=== PATIENT | female | born 1960 | race Caucasian/White ===

== ENCOUNTER 2018-07-20 08:39 | Emergency (ER) | payer BC ==
[2018-07-20 09:00] VITALS: BP 192/90
--- NOTE | 2018-07-20 09:28 | UC ---
Throat Pain/Nasal Gianni HPI - HPI Summary HPI Summary: Pt c/o ST that "comes and goes " X 2 months, right ear pain X 3 days, body aches , cough X 3 days. - History of Current Complaint Chief Complaint: UCGeneralIllness Stated Complaint: SORE THROAT, VOICE LOSS, SINUSES, RT EAR Time Seen by Provider: 07/20/18 09:00 Hx Obtained From: Patient ?: No Onset/Duration: Gradual Onset, Lasting Weeks, Still Present Severity: Moderate Pain Intensity: 6 Cough: None Associated Signs & Symptoms: Positive: Dysphagia, Sinus Discomfort Related History: Smoking - Epiglottits Risk Factors Epiglottis Risk Factors: Negative - Allergies/Home Medications Allergies/Adverse Reactions: Allergies Allergy/AdvReac Type Severity Reaction Status Date / Time amoxicillin [From Augmentin] Allergy Diarrhea Verified 07/20/18 08:58 clavulanic acid Allergy Diarrhea Verified 07/20/18 08:58 [From Augmentin] Home Medications: Home Medications Atorvastatin* [Lipitor*] 20 mg PO 1700 07/20/18 [History Confirmed 07/20/18] PMH/Surg Hx/FS Hx/Imm Hx Previously Healthy: Yes Endocrine History: Diabetes, Dyslipidemia Cardiovascular History: Cardiac Disease, Hypertension - Surgical History Surgical History: Yes Surgery Procedure, Year, and Place: removal of cyst in groin - Family History Known Family History: Positive: Cardiac Disease - Social History Occupation: Employed Full-time Lives: With Family Alcohol Use: None Substance Use Type: None Smoking Status (MU): Heavy Every Day Tobacco Smoker Type: Cigarettes Amount Used/How Often: 1 PPD Length of Time of Smoking/Using Tobacco: 35 Years Have You Smoked in the Last Year: Yes Household Exposure Type: Cigarettes - Immunization History Most Recent Influenza Vaccination: 05/11/14 Vaccination Up to Date: No Review of Systems All Other Systems Reviewed And Are Negative: Yes Constitutional: Positive: Chills Skin: Positive: Negative Eyes: Positive: Negative ENT: Positive: Sore Throat, Ear Ache, Sinus Congestion Respiratory: Positive: Negative Cardiovascular: Positive: Negative Gastrointestinal: Positive: Negative Genitourinary: Positive: Negative Motor: Positive: Negative Neurovascular: Positive: Negative Musculoskeletal: Positive: Myalgia Neurological: Positive: Negative Psychological: Positive: Negative Is Patient Immunocompromised?: No Physical Exam Triage Information Reviewed: Yes Appearance: Ill-Appearing Vital Signs: Initial Vital Signs Temp 97.6 F 07/20/18 08:52 Pulse 93 07/20/18 08:52 Resp 17 07/20/18 08:52 BP 192/90 07/20/18 08:52 Pulse Ox 99 07/20/18 08:52 Vital Signs Reviewed: Yes Eye Exam: Normal ENT: Positive: Nasal congestion Dental Exam: Other - pt does not have any teeth. Neck exam: Normal Neck: Positive: Supple, Nontender, No Lymphadenopathy Respiratory Exam: Normal Cardiovascular Exam: Normal Musculoskeletal Exam: Normal Neurological Exam: Normal Psychological Exam: Normal Skin Exam: Normal Throat Pain/Nasal Course/Dx - Course Assessment/Plan: I disucssed with the pt the need to follow up with her PCP. Pt reports that she has not had a colonoscopy or endoscopy. - Differential Dx/Diagnosis Differential Diagnosis/HQI/PQRI: Otitis Media, Pharyngitis, Sinusitis, Tonsillitis, URI Provider Diagnosis: Viral syndrome, Sore throat Discharge - Sign-Out/Discharge Documenting (check all that apply): Patient Departure All imaging exams completed and their final reports reviewed: No Studies - Discharge Plan Condition: Stable Disposition: HOME Patient Education Materials: Viral Syndrome (ED) Referrals: Eligio Jay MD [Primary Care Provider] - As Soon As Possible Additional Instructions: PLEASE FOLLOW UP WITH YOUR PCP IMMEDIATELY FOR FURTHER EVALUATION AND TESTING REGARDING YOUR COMPLAINT OF SORE THROAT. - Billing Disposition and Condition Condition: STABLE Disposition: Home - Attestation Statements Provider Attestation: Per institutional requirements, I have reviewed the chart, however, I was not consulted specifically or made aware of this patient by the midlevel provider. I did not personally evaluate, interact with , or disposition this patient.
== END 2018-07-20 09:47 | disposition home or self-care (01) ==
LOC: UCCORT 08:39
DX: J02.9 Acute pharyngitis, unspecified (principal); B34.9 Viral infection, unspecified; E11.9 Type 2 diabetes mellitus without complications; I10 Essential (primary) hypertension; F17.210 Nicotine dependence, cigarettes, uncomplicated; E78.5 Hyperlipidemia, unspecified; Z88.0 Allergy status to penicillin; Z79.899 Other long term (current) drug therapy
CPT/HCPCS: 87651; 99211; G0463

== ENCOUNTER 2018-09-06 08:50 | Emergency (ER) | payer BC ==
[2018-09-06 09:00] VITALS: BP 160/81
--- OUTSIDE RECORDS SUMMARY | 2018-09-06 09:14 | XMS REPORT | Continuity of Care Document ---
:1960 External Reference #:[id number] Author Name Adolfo Ceron MD Address [address] [place] [address] Care Team Providers Name Role Phone Eligio Jay MD Care Team Information Wax Ball Molder Unavailable Eligio Jay MD Primary Care Physician Unavailable Payers Date Identification Numbers Payment Provider Subscriber Policy Number: [id number] Aimee Wong PayID: [id number] [address] [address] [place] [address] Advance Directives Description No Information Available Problems Date Description Provider Status Onset: 07/08/2017 Mixed hyperlipidemia Slick Henderson M.D., Active FACC Onset: 07/08/2017 Obesity Slick Henderson M.D., Active FACC Onset: 2010 Eruption Slick Henderson M.D., Active FACC Onset: 2010 Tobacco user Slick Henderson M.D., Active FACC Onset: 2010 Type II diabetes mellitus Slick Henderson M.D., Active uncontrolled FACC Onset: 2010 Benign essential hypertension Slick Henderson M.D., Active FACC Onset: 2010 Paroxysmal ventricular Slick Henderson M.D., Active tachycardia FACC Family History Date Family Member(s) Observation Comments Father due to Heart Attack () Father Myocardial Infarction 63 Mother due to Cancer () Mother Pancreatic Cancer 80 Children 1 Siblings 4 Social History Type Date Description Comments Sex Unknown Marital Status Lives With Gag[facility]ep Home Environment Lives With Spouse Diet Patient is on a VALENTIN diabetic diet Occupation Currently Working part-time [employer] Work Status Currently Working ADL's/IADL's Independent with all ADL's Tobacco Use Start: Unknown Current Cigarette Smoker 1 Pack Daily Cigarette Use Pack Years - 30 ETOH Use Denies alcohol use ETOH Use Currently consumes alcohol socially Tobacco Use Start: Unknown Yes Recreational Drug Use Denies Drug Use Tobacco Use Start: Unknown Patient is a current 1 ppd x 38 years smoker, smokes every day Smoking Status Reviewed: 08/20/18 Patient is a current 1 ppd x 38 years smoker, smokes every day Exercise Type/Frequency Exercises daily with work Exercise Type/Frequency Does housework daily Allergies, Adverse Reactions, Alerts Date Description Reaction Status Severity Comments 07/08/2017 Jardiance Active yeast 08/21/2010 NKDA Inactive 07/08/2017 NKDA Inactive Medications Medication Date Status Form Strength Qnty SIG Indications Ordering Provider Novolog Flexpen 03/12/20 Active Solution 100Unit/M 15ml 10u E11.65 Aletha, 17 Pen-Injec L before Eden Melendrez t meals subcutan eous three times a day as needed Atorvastatin 11/21/19 Active Tablets 20mg 90tab Take One E78.5 Sandra Henderson 17 s Tablet Slick Slaughter, By Mouth Tay.DLinh, FAC Every Day Amlodipine Active Capsules 5-10mg 30cap 1 po qd Unknown Besylate/Benaze 00 s pril Hydrochloride Tresiba Active Solution 200Unit/M 27ml inject Aletha Flextouch 00 Pen-Injec L 50 units Eden Melendrez t under the skin at bedtime Metformin HCL Active Tablets 1000mg 180ta 1 by Aletha 00 bs mouth Eden Melendrez twice a day Amiodarone HCL Active Tablets 200mg 90tab 1 by Beatriz, 00 s mouth Slick Slaughter, every M.DLinh, FAC day Jardiance 04/30/20 Hx Tablets 25mg 90tab 1 by E11.65 Aletha 17 - s mouth Parvin, M.D. Unknown every day Jardiance 03/12/20 Hx Tablets 10mg 90tab 1 by E11.65 Aletha 17 - s mouth Eden Melendrez 04/30/20 every 17 day Tylenol With 01/19/20 Hx Tablets 300-30mg 20tab 1 by Yo Jaquez #3 17 - s mouth Christopher 03/12/20 q6hr as Eden Malik 17 needed severe pain, us if ibuprofe n not effectiv e Cephalexin 01/19/20 Hx Capsules 250mg Gisele 17 - Vanceopher 03/12/20 Eden Malik 17 Ibuprofen 01/19/20 Hx Tablets 600mg Gisele 17 - Quintoner 03/12/20 Eden Malik 17 Silver 01/19/20 Hx Cream 1% 400gm use on [place] Sulfadiazine 17 - gauze / Vanceopher 03/12/20 dressing Eden Malik 17 chages as directed once daily an dominguez needed Fluconazole 01/19/20 Hx Tablets 150mg 2tabs take 1 Gisele 17 - tablet Quintoner 03/12/20 by mouth Eden Malik 17 one time. repeat in 5 days if symptoms persist Keflex 08/09/19 Hx Capsules 500mg 14cap Take Gisele 16 - s twice a Cr Unknown day for HEden Melton 7 days Sulfamethoxazol 08/02/19 Hx Tablets 800-160mg 20tab 1 by wilfrid Jaquez/Trimethoprim 16 - s mouth Cr DS Unknown twice a HEden Melton day Crestor 10/19/19 Hx Tablets 10mg 30tab Take One 272.0 Jonel Ventura 11 - s Tablet MD Sterling, PhD Unknown By Mouth Every Day Janumet Hx Tablets 50-500mg 1 po bid Unknown 00 - Unknown Lantus Hx Solution 100Unit/M 15 units Unknown 00 - L qhs Unknown Glyburide Hx Tablets 2.5mg 1 po qam Unknown 00 - Unknown Enalapril Hx Tablets 20mg 1 po qd Unknown Maleate 00 - Unknown Magnesium Oxide Hx Tablets 400mg po qid Unknown 400 00 - Unknown Hydrochlorothia Hx Tablets 12.5mg 30tab 1 po qd Unknown zide - s Unknown Meclizine HCL Hx Tablets 25mg 90tab 1 po tid Unknown 00 - s prn Unknown Meloxicam Hx Tablets 15mg 1 po qd Unknown 00 - Unknown Citalopram Hx Tablets 20mg 90tab 1 po qd Unknown Hydrobromide - s 12/18/19 18 Novolog Mix Hx Supn (70-30)10 20 units Unknown 70/30 Prefilled 00 - 0Unit/ML subq bid Flexpen Unknown Amiodarone HCL Hx Tablets 200mg 30tab Take One I47.2 Beatriz - s Tablet Slick Slaughter, 11/21/19 By Mouth M.DLinh, FAC 17 Every Day Aspirin Adult Hx Tablets 81mg 1 by Unknown Low Dose 00 - DR mouth 01/02/20 every 17 day Immunizations Description No Information Available Vital Signs Date Vital Result Comment 08/20/2018 3:42pm BP Systolic Sitting Right Arm 165 mmHg BP Diastolic Sitting Right Arm 80 mmHg Heart Rate 81 /min Respiratory Rate 16 /min Height 64.9 inches 5'4.90" Weight 207.00 lb BMI (Body Mass Index) 34.5 kg/m2 BSA (Body Surface Area) 2.00 m2 [place] body weight in kilograms 56 kg O2 % BldC Oximetry 99 % ra 08/12/2018 8:38am BP Systolic 154 mmHg BP Diastolic 86 mmHg Body Temperature 97.8 F Heart Rate 80 /min Height 64.9 inches 5'4.90" Weight 203.00 lb BMI (Body Mass Index) 33.9 kg/m2 BSA (Body Surface Area) 1.99 m2 [place] body weight in kilograms 56 kg O2 % BldC Oximetry 98 % 05/23/2018 3:51pm BP Systolic 170 mmHg BP Diastolic 79 mmHg Body Temperature 98.3 F Heart Rate 75 /min Height 66 inches 5'6" Weight 211.00 lb BMI (Body Mass Index) 34.1 kg/m2 BSA (Body Surface Area) 2.05 m2 [place] body weight in kilograms 59 kg O2 % BldC Oximetry 98 % 05/23/2018 8:23am BP Systolic 182 mmHg BP Diastolic 82 mmHg Heart Rate 69 /min Respiratory Rate 16 /min Height 66 inches 5'6" Weight 209.00 lb BMI (Body Mass Index) 33.7 kg/m2 BSA (Body Surface Area) 2.04 m2 [place] body weight in kilograms 59 kg O2 % BldC Oximetry 98 % 03/21/2018 3:53pm BP Systolic 136 mmHg BP Diastolic 80 mmHg Heart Rate 82 /min Height 66 inches 5'6" Weight 204.00 lb BMI (Body Mass Index) 32.9 kg/m2 BSA (Body Surface Area) 2.02 m2 [place] body weight in kilograms 59 kg O2 % BldC Oximetry 98 % 03/19/2018 2:00pm BP Systolic Sitting Left Arm 136 mmHg BP Diastolic Sitting Left Arm 72 mmHg Heart Rate 84 /min Respiratory Rate 16 /min Height 64 inches 5'4" Weight 208.00 lb BMI (Body Mass Index) 35.7 kg/m2 BSA (Body Surface Area) 1.99 m2 [place] body weight in kilograms 54 kg O2 % BldC Oximetry 98 % Room air 02/13/2018 10:49am BP Systolic Sitting Left Arm 130 mmHg BP Diastolic Sitting Left Arm 88 mmHg Heart Rate 83 /min Respiratory Rate 16 /min Height 64 inches 5'4" Weight 197.00 lb BMI (Body Mass Index) 33.8 kg/m2 BSA (Body Surface Area) 1.94 m2 [place] body weight in kilograms 54 kg O2 % BldC Oximetry 98 % 07/08/2017 3:03pm BP Systolic Sitting Left Arm 130 mmHg BP Diastolic Sitting Left Arm 62 mmHg Heart Rate 84 /min Respiratory Rate 16 /min Height 64 inches 5'4" Weight 200.00 lb BMI (Body Mass Index) 34.3 kg/m2 BSA (Body Surface Area) 1.96 m2 [place] body weight in kilograms 54 kg 04/30/2017 3:45pm BP Systolic 128 mmHg BP Diastolic 70 mmHg Height 64 inches 5'4" Weight 216.12 lb BMI (Body Mass Index) 37.1 kg/m2 BSA (Body Surface Area) 2.02 m2 [place] body weight in kilograms 54 kg 03/12/2017 1:29pm BP Systolic 128 mmHg BP Diastolic 70 mmHg Height 64 inches 5'4" Weight 216.12 lb BMI (Body Mass Index) 37.1 kg/m2 BSA (Body Surface Area) 2.02 m2 [place] body weight in kilograms 54 kg 01/11/2017 8:23am BP Systolic Sitting Left Arm 132 mmHg BP Diastolic Sitting Left Arm 84 mmHg Heart Rate 72 /min Respiratory Rate 16 /min Height 64 inches 5'4" Weight 213.00 lb BMI (Body Mass Index) 36.6 kg/m2 BSA (Body Surface Area) 2.01 m2 [place] body weight in kilograms 54 kg 12/27/2016 2:47pm BP Systolic 120 mmHg BP Diastolic 80 mmHg Height 64 inches 5'4" Weight 218.00 lb BMI (Body Mass Index) 37.4 kg/m2 BSA (Body Surface Area) 2.03 m2 [place] body weight in kilograms 54 kg 11/20/2016 10:03am BP Systolic Sitting Left Arm 138 mmHg BP Diastolic Sitting Left Arm 82 mmHg Heart Rate 80 /min Respiratory Rate 16 /min Height 66 inches 5'6" Weight 220.00 lb BMI (Body Mass Index) 35.5 kg/m2 BSA (Body Surface Area) 2.08 m2 [place] body weight in kilograms 59 kg 08/02/2015 10:33am BP Systolic 144 mmHg BP Diastolic 80 mmHg Height 66 inches 5'6" Weight 207.00 lb BMI (Body Mass Index) 33.4 kg/m2 BSA (Body Surface Area) 2.03 m2 05/04/2011 2:25pm BP Systolic Sitting Right Arm 122 mmHg BP Diastolic Sitting Right Arm 80 mmHg Heart Rate 80 /min Respiratory Rate 16 /min Height 66 inches 5'6" Weight 204.00 lb BMI (Body Mass Index) 32.9 kg/m2 10/18/2010 11:19am BP Systolic Sitting Left Arm 118 mmHg BP Diastolic Sitting Left Arm 68 mmHg Heart Rate 72 /min Respiratory Rate 16 /min Height 66 inches 5'6" Weight 199.00 lb BMI (Body Mass Index) 32.1 kg/m2 2010 11:10am BP Systolic Sitting Right Arm 120 mmHg BP Diastolic Sitting Right Arm 72 mmHg Heart Rate 86 /min Respiratory Rate 16 /min Height 65.5 inches 5'5.50" Weight 203.00 lb BMI (Body Mass Index) 33.3 kg/m2 08/21/2010 3:11pm Heart Rate 77 /min Regular Respiratory Rate 16 /min Height 66 inches 5'6" Weight 204.00 lb BMI (Body Mass Index) 32.9 kg/m2 Results Test Date Facility Test Result H/L Range Note Laboratory test 04/12/2017 [facility] Thyroid Stim 1.94 uIU/mL N 0.30-4.20 1 finding [address] [place] [address] [phone] Free T4 1.14 ng/dL N 0.76-1.46 Laboratory test 04/12/2017 [facility] CK 59 U/L N 26-192 finding [address] [place], [place] [address] [phone] LDL Cholesterol 04/12/2017 [facility] Cholesterol 122 mg/dL <200 2 Profile [address] [place] [address] [phone] Triglycerides 77 mg/dL <150 3 HDL Cholesterol 70 mg/dL >40 4 LDL-Cholesterol 37 mg/dL < 100 5 Glycohemoglobin 04/12/2017 [facility] Glycohemoglobin 9.5 % High 4.2-6.3 6 A1c [address] (A1c) [place] [address] [phone] eAG 226 mg/dL Comprehensive Metabolic 04/12/2017 [facility] Glucose 131 mg/dL High 74-106 Panel [address] [place] [address] [phone] BUN 25 mg/dL High 7-18 Creatinine 1.3 mg/dL N 0.6-1.3 Glom Filtration Rate, Estimate 45 mL/min >60 If 54 mL/min >60 7 BUN/Creat 19.2 ratio Sodium 138 mmol/L N 136-145 Potassium 4.5 mmol/L N 3.5-5.1 Chloride 108 mmol/L High 98-107 Carbon Dioxide 24 mmol/L N 21-32 Anion Gap 6 mEq/L Low 8-16 Calcium 9.2 mg/dL N 8.5-10.1 Total Protein 7.9 g/dL N 6.4-8.2 Albumin 3.6 g/dL N 3.4-5.0 Globulin 4.3 g/dL N 1.9-4.3 Alb/Glob 0.8 ratio Bilirubin,Total 0.3 mg/dL N 0.2-1.0 Sgot/Ast 24 U/L N 15-37 SGPT/Alt 40 U/L N 12-78 Alkaline Phosphatase 127 U/L High 45-117 Laboratory test 04/12/2017 [facility] C-Peptide 1.0 ng/mL Low 1.1-4.4 [address] [place] [address] [phone] CBS W/Automated 04/12/2017 [facility] White Blood 9.9 K/uL N 3.1-10.[address] [place] [address] [phone] Red Blood Count 3.83 M/uL Low 3.90-5.40 Hemoglobin 12.0 gm/dL N 11.6-15.8 Hematocrit 35.8 % Low 36.0-46.1 Mean Cell Volume 93.5 fl N 80.9-99.0 Mean Corpuscular HGB 31.3 pg N 25.9-32.7 Mean Corpuscular HGB Conc 33.5 g/dL N 30.8-34.3 Platelet Count 347 K/uL N 150-400 Red Cell Distri Width SD 46.5 fl N 3-47 Red Cell Distri Width %CV 14.0 % N 11.7-14.4 Mean Platelet Volume 11.2 fL N 8.9-12.4 Neut% 48.2 % N 40.4-72.8 Lymph % 37.6 % N 20.0-42.0 [place] % 8.1 % N 4.3-13.2 Eo% 5.3 % N 0.0-6.6 Bas% 0.8 % N 0.0-1.1 Neut# 4.78 K/uL N 1.8-7.0 Lymph # 3.73 K/uL N 1.0-4.0 [place] # 0.80 K/uL N 0.3-0.9 Eos # 0.53 K/uL High 0.0-0.5 Baso # 0.08 K/uL N 0.0-0.1 Laboratory test 10/25/2016 N2N/CCD Import Pap Smear ok 9 finding Thin Prep Laboratory test 10/25/2016 N2N/CCD Import HPV Laboratory Allia 10 finding <See Note> Divide Urine 10/20/2016 N2N/CCD Import Alb/Creatini 270.9 ug/mg High (0.0- 2 Albumin @ ne Ratio 9.9) Albumin, Urine 9.21 mg/dL Creatinine,Urine 34.00 mg/dL Laboratory test finding 10/08/2016 N2N/CCD Import A/G Ratio 1.6 Ratio 1.0-2.2 11 Jackie Egfr 55 Low >60 Albumin 4.0 g/dL 3.6-4.9 Alkaline Phosphatase 90 U/L 24-140 Alt 42 U/L 3-42 Anion Gap 16 mmol/L 7-16 Ast 30 U/L 8-42 BUN 18 mg/dL 6-26 Calcium 9.3 mg/dL 8.5-10.2 Carbon Dioxide 25 mmol/L 24-34 Chloride# 105 mmol/L 97-110 Creatinine 1.2 mg/dL 0.5-1.4 Globulin 2.5 g/dL 2.0-3.5 Glucose 189 mg/dL High 70-105 12 Hemoglobin A1c 11.1 % High 4.1-5.9 Hepatitis C Virus Antibody Nonreactive Nonreactive Non Jackie Egfr 46 Low >60 Potassium 5.0 mmol/L 3.5-5.2 13 Sodium 141 mmol/L 135-146 TSH 4.85 uIU/mL 0.35-4.94 Total Bilirubin 0.3 mg/dL 0.1-1.3 Total Protein 6.5 g/dL 6.0-8.0 Vit D,25 Hydroxy 20 ng/mL Low 31-100 Vitamin B12 314 pg/mL 180-914 CBC With Auto Diff 10/08/2016 N2N/CCD Import Abs Basophils 0.1 K/uL 0.0- 0.3 Abs Eosinophils 0.4 K/uL 0.0-0.5 Abs Lymphocytes 2.8 K/uL 0.8-5.5 Abs Monocytes 0.7 K/uL 0.1-1.0 Abs Neutrophils 5.7 K/uL 2.1-8.0 Basophil 1.1 % 0.0-4.0 Eosinophil 4.2 % 0.0-5.0 Hematocrit 34.5 % Low 36.0-47.0 Hemoglobin 11.5 gm/dL Low 12.0-16.0 Lymphocyte 28.9 % 16.0-52.0 MCH 31.6 pg 27.0-32.0 MCHC 33.5 g/dL 32.0-36.0 MCV 94.2 fL 80.0-97.0 Monocyte 7.2 % 2.0-10.0 Neutrophil 58.6 % 35.0-75.0 PLT Count 329 K/ul 140-400 RBC 3.66 M/uL Low 4.00-5.40 RDW 13.5 % 11.5-14.5 WBC 9.6 K/uL 4.1-11.0 Lipid 10/08/2016 N2N/CCD Import Chol/ HDL Ratio 2.9 ratio Low 3.7-5.6 14 Cholesterol 187 mg/dL 50-199 HDL 65 mg/dL 35-85 LDL (Calc) 100 mg/dL High 20-99 Triglycerides 107 mg/dL 30-200 VLDL 21 mg/dL 2-29 Laboratory test 09/24/2016 N2N/CCD Import Fit(Fecal Occult Negative Negative 15 finding Blood) Routine Culture W/ 08/08/2015 [facility] Gram Stain See Note 16 Gram Stain [address] [place] [address] [phone] Aerobic Culture See Note 17 Anaerobic Culture 08/08/2015 [facility] Anaerobic Culture See Note 18 W/ GR Stain [address] [facility] W/ GR Stain [place], [place] [id number] [phone] Gram Stain; Anaerobic Specimen See Note 19 Anaerobic Culture See Note 20 Laboratory test finding 07/11/2015 N2N/CCD Import Estimated Average 249 Glucose (eAG) Hemoglobin A1c 10.3 High 4.2-6.3 Laboratory test finding 05/07/2015 N2N/CCD Import Albumin/Globulin Ratio 0.9 Estimated Average Glucose (eAG) 252 Free Thyroxine 1.16 0.76-1.46 Hemoglobin A1c 10.4 High 4.2-6.3 Sodium Level 140 136-145 Laboratory test 04/12/2011 [facility] Bilirubin,Total 0.3 mg/dL 0.2-1.2 finding [address] [place] [address] [phone] Sgot/Ast 18 U/L 16-40 SGPT/Alt 37 U/L 30-65 Alkaline Phosphatase 70 U/L 50-136 Thyroxine (T4) 12.6 g/dL 5.3-14.8 Thyroid Stim Hormone 4.45 uIU/mL 0.49-4.67 Glycohemoglobin 04/12/2011 [facility] Glycohemoglobin 9.4 % High 4.8-6.0 [address] (A1c) [place] [address] [phone] eAG 223 mg/dL Laboratory test 04/12/2011 [facility] Vitamin 42.5 32.0-100.0 [address] D,25-Hydroxy ng/[place] [address] [phone] CBS W/Automated 04/12/2011 [facility] White Blood 10.6 K/uL 3.1-10.[address] [place] [address] [phone] Red Blood Count 3.62 M/uL Low 3.90-5.40 Hemoglobin 11.5 gm/dL Low 11.6-15.8 Hematocrit 34.1 % Low 36.0-46.1 Mean Cell Volume 94.2 fl 80.9-99.0 Mean Corpuscular HGB 31.8 pg 25.9-32.7 Mean Corpuscular HGB Conc 33.7 g/dL 30.8-34.3 Platelet Count 357 K/uL 155-360 Red Cell Distri Width %CV 13.6 % 11.7-14.4 Mean Platelet Volume 11.4 fL 8.9-12.4 Neut% 51.3 % 40.4-72.8 Lymph % 35.4 % 17.0-46.1 [place] % 7.4 % 4.3-13.2 Eo% 5.2 % 0.0-6.6 Bas% 0.7 % 0.0-1.1 Neut# 5.46 K/uL 1.0-7.0 Lymph # 3.76 K/uL High 0.8-3.4 [place] # 0.79 K/uL 0.3-0.9 Eos # 0.55 K/uL High 0.0-0.5 Baso # 0.07 K/uL 0.0-0.1 Red Cell Distri Width SD 45.1 fl 3-47 LDL Cholesterol 04/12/2011 [facility] Cholesterol 133 mg/dL 120-[address] [place] [address] [phone] Triglycerides 80 mg/dL 16-231 HDL Cholesterol 66 mg/dL 29-83 LDL-Cholesterol 51 mg/dL Low 62-185 Laboratory test finding 04/12/2011 [facility] Magnesium 1.8 mg/dL 1.7-2.3 [address] [place] [address] [phone] Basic Metabolic Panel 04/12/2011 [facility] Glucose 94 mg/dL 76-115 [address] [place] [address] [phone] BUN 14 mg/dL 5-23 Creatinine 0.9 mg/dL 0.5-1.4 Glom Filtration Rate, Estimate >60 mL/min >60 If >60 mL/min >60 23 BUN/Creat 15.5 ratio Sodium 138 mmol/L 136-145 Potassium 4.7 mmol/L 3.5-5.1 Chloride 104 mmol/L 98-107 Carbon Dioxide 26 mEq/L 18-29 Anion Gap 13 mEq/L 8-16 Calcium 9.5 mg/dL 8.5-10.1 Liver Function Tests 12/18/2010 [facility] Total Protein 7.8 g/dL 6.3-8.0 [address] [place] [address] [phone] Albumin 3.5 g/dL 3.5-5.0 Bilirubin,Total 0.3 mg/dL 0.2-1.2 Bilirubin,Direct 0.1 mg/dL 0.1-0.4 Bilirubin,Indirect 0.2 mg/dL 0.0-0.9 Sgot/Ast 16 U/L 16-40 SGPT/Alt 49 U/L 30-65 Alkaline Phosphatase 89 U/L 50-136 Globulin 4.3 gm/dL 1.9-4.3 Alb/Glob 0.8 LDL Cholesterol 12/18/2010 [facility] Cholesterol 119 mg/dL Low 120-200 Profile [address] [place] [address] [phone] Triglycerides 54 mg/dL 0-210 HDL Cholesterol 55 mg/dL 32-96 LDL-Cholesterol 53 mg/dL Low 62-185 Laboratory test 10/18/2010 [facility] Thyroid Stim 2.77 uIU/mL 0.49-4.67 24 finding [address] [place] [address] [phone] Magnesium 1.9 mg/dL 1.7-2.3 25 Liver Function Tests 10/18/2010 [facility] Total Protein 7.6 g/dL 6.3-8.0 [address] [place] [address] [phone] Albumin 3.8 g/dL 3.5-5.0 Bilirubin,Total 0.2 mg/dL 0.2-1.2 Bilirubin,Direct 0.1 mg/dL 0.1-0.4 Bilirubin,Indirect 0.1 mg/dL 0.0-0.9 Sgot/Ast 15 U/L Low 16-40 SGPT/Alt 35 U/L 30-65 Alkaline Phosphatase 88 U/L 50-136 Globulin 3.8 gm/dL 1.9-4.3 Alb/Glob 1.0 LDL Cholesterol 10/18/2010 [facility] Cholesterol 153 mg/dL 120-200 Profile [address] [place] [address] [phone] Triglycerides 143 mg/dL 0-210 HDL Cholesterol 50 mg/dL 32-96 LDL-Cholesterol 74 mg/dL 62-185 1 E11.65 E78.2 2 Reference Guidelines*: Desirable: ........... < 200 mg/dL Borderline High: ..... 200-239 mg/dL High: ................ >=240 mg/dL * The National Cholesterol Education Program (NCEP) 3 Reference Guidelines*: Normal: ............. < 150 mg/dL Borderline High: .... 150-199 mg/dL High: ............... 200-499 mg/dL Very High: .......... > 500 mg/dL * Source: National Cholesterol Education Program (NCEP) 4 Reference Guidelines*: Low HDL: ..... < 40 mg/dL Normal: ..... 40-60 mg/dL Desirable: ... > 60 mg/dL *The National Cholesterol Education Program(NCEP) 5 Reference Guidelines*: Optimal:........... <100 mg/dL Near Optimal....... 100-129 mg/dL Borderline High.... 130-159 mg/dL High............... 160-189 mg/dL Very High.......... >=190 mg/dL * Source: National Cholesterol Education Program (NCEP) 6 Elevated levels of HbA1c suggest the need for more aggressive treatment of glycemia. The [place] [employer] recommends that a primary goal of therapy should be a HbA1c of <7% and that physicians should re-evaluate the treatment regimen in patients with HbA1c values consistently >8%. 7 Note: Persistent reduction for 3 months or more in an eGFR <60 mL/min/1.73 m2 defines CKD. Patients with eGFR values >/=60 mL/min/1.73 m2 may also have CKD if evidence of persistent proteinuria is present. The original MDRD equation for estimated GFR is not valid for patients less than 18 years of age. Additional information may be found at www.kdoqi.org. 8 C-Peptide reference interval is for fasting patients. Performed at: RN - [facility] [address] [id number] Tip Printer: Yuliya Felipe MD, Phone: [phone] [employer] [facility] [employer] [place] [address] CYTOLOGY REPORT Source of Specimen(s): Thin Prep Cervical / Endocervical Pap Smear - One Vial Date of Last Menstrual Period: 2009 Other Clinical Conditions: Last Pap Smear: 2012 ok per pt HPV ASSAY REQUESTED Specimen Adequacy SATISFACTORY FOR EVALUATION PRESENCE OF ENDOCERVICAL/TRANSFORMATION ZONE COMPONENT General Categorization NEGATIVE FOR INTRAEPITHELIAL LESION OR MALIGNANCY Interpretation NEGATIVE FOR INTRAEPITHELIAL LESION OR MALIGNANCY Comment HPV testing will be performed and a separate report will be issued. Reported: 10/29/2016 11:45 Electronically Signed Out By Sarah LE(ASCP) endy ICD9 Code: Z01.419 Unless otherwise specified, testing performed by [facility] [employer] [address] [address] [employer] [place] [address] [employer] [place] [address] Amplified Molecular High Risk HPV Test Patient Name:LISA WONG Patient :1960 Ordering Physician:CLARISSA LOVELACE MD Accession Number [id number] Specimen(s) Received A: High Risk HPV Thin Prep Cervical / Endocervical Pap Smear - One Vial Other Case Numbers: [id number] Diagnosis RISK GROUPS RESULTS High Risk NEGATIVE Tested for HPV Types (16, 18, 31, 33, 35, 39, 45, 51, 52, 56, 58, 59, 66, 68) Reported: 10/30/2016 10:28 Electronically Signed Out By Ifrah Potter [place] brennen Irena Delgado 11 Fastin hours 12 Updated reference range on new analyzer 13 Updated reference range on new analyzer 14 Per NCEP ATP III Guidelines: Results lower than 40 mg/dL are suggestive of increased risk for coronary artery disease. Results > or=to 60 mg/dL are considered a negative risk factor. 15 given LC 16 GRAM STAIN ! RARE GRAM POSITIVE COCCI ! RARE WHITE BLOOD CELLS 17 Organism 1 ! NO PATHOGENS ISOLATED 18 CULTURE IN PROGRESS 19 GRAM STAIN ! RARE GRAM POSITIVE COCCI ! RARE WHITE BLOOD CELLS 20 NO ANAEROBES ISOLATED 21 A1c value between 5.7% and 6.4% is considered at increased risk for diabetes. A1c value greater than 6.5 % is considered essentially diagnostic for Type II diabetes. Current guidelines recommend a treatment goal of <7% for diabetic patients. This method will measure glycosylated hemoglobin variants, HbS, HbG, HbH, HbWayne, HbC, HbE, etc. Other hemoglobin- opathies may give incorrect results with this test. 22 Effective May 14, 2011 Vitamin D, 25-Hydroxy reference intervals will be changing to 30-100. Recent studies consider the lower limit of 32.0 ng/mL to be a threshold for optimal health. Luis GO. J Nutr. 2004;135(2):317-22. Performed at: RN - [facility] [address] [id number] Tip Printer: Tristan Waters MD, Phone: [phone] Note: Persistent reduction for 3 months or more in an eGFR <60 mL/min/1.73 m2 defines CKD. Patients with eGFR values >/=60 mL/min/1.73 m2 may also have CKD if evidence of persistent proteinuria is present. The original MDRD equation for estimated GFR is not valid for patients less than 18 years of age. Additional information may be found at www.kdoqi.org. 24 QUERY: @[facility] Pat ID: [id number] QUERY: @[facility] Req #: [id number] QUERY: @EMR Pat ID: [id number] QUERY: @[facility] Req #: [id number] Procedures Date Code Description Status 08/12/2018 08980 Debridement Nails Any Method 6 Or More Completed 05/23/2018 54478 Debridement Nails Any Method 6 Or More Completed 04/11/2018 61672 Bronchospasm Provocation Evaluation Multi Spirometric Completed Determinati 04/11/2018 09760 Spirometry Completed 03/21/2018 79391 Debridement Nails Any Method 6 Or More Completed 02/28/2018 42229 Eye Exam Est Patient Comprehensive Completed 02/13/2018 88203 EKG-Tracing And Report Completed 02/06/2018 89824 EKG Interpretation And Report Only Completed 12/17/2017 45493 Eye Exam Est Patient Comprehensive Completed 04/09/2017 34891 Glucose Monitoring Interpetation And Report Completed 03/18/2017 35640 Glucose Monitoring From Interstital Tissue Fluid Completed Minimum 72 Hours 01/08/2017 60984 Stress Test Interpre And Report Only Completed 01/08/2017 78064 Stress Test Physician Super Only Completed 01/08/2017 84624 Myocardial Imaging Tomographic Multiple Study AT Rest Completed Or Stress 01/08/2017 06923 Exc Other Benign Lesion Trunk,Arms Or Legs 0.5CM Or Completed Less 01/07/2017 88746 Myocardial Imaging Tomographic Multiple Study AT Rest Completed Or Stress 01/07/2017 91603 Stress Test Physician Super Only Completed 01/07/2017 64026 Stress Test Interpre And Report Only Completed 12/12/2016 36019 Echocardiogram Complete Completed 11/20/2016 90740 EKG-Tracing And Report Completed 11/20/2016 70235 EKG-Tracing And Report Completed 10/03/2016 29675 Eye Exam New Patient Comprehensive Completed 08/08/2015 89777 I & D Of Abscess/Simple Or Single Completed 06/24/2012 32103505 Mammogram Completed 2010 42285 Event Monitor Inter/Review Only Completed 08/21/2010 61104 EKG-Tracing And Report Completed 08/17/2010 31477 EKG Interpretation And Report Only Completed 08/16/2010 43336 Echocardiogram Complete Completed 08/16/2010 62106 Stress Test Interpre And Report Only Completed 08/16/2010 22530 Stress Test Physician Super Only Completed 08/16/2010 49913 EKG Interpretation And Report Only Completed 08/16/2010 38380 Myocardial Imaging Tomographic Multiple Study AT Rest Completed Or Stress Encounters Type Date Location Provider Dx Diagnosis Office Visit 05/23/2018 Cardiology Office Slick Henderson J44.9 Chronic obstructive 8:40a Eden Slaughter, FACC pulmonary disease, unspecified Z71.6 Tobacco abuse counseling I47.2 Ventricular tachycardia Office Visit 03/19/2018 2:00p Pulmonology Adolfo Ceron MD J44.9 Chronic obstructive pulmonary disease, unspecified J18.9 Pneumonia, unspecified organism F17.210 Nicotine dependence, cigarettes, uncomplicated Z71.6 Tobacco abuse counseling Office Visit 02/13/2018 11:00a Cardiology Slick Henderson I47.2 Ventricular Office Eden Slaughter, FACC tachycardia E11.65 Type 2 diabetes mellitus with hyperglycemia F17.210 Nicotine dependence, cigarettes, uncomplicated Office Visit 07/08/2017 Cardiology Beatirz F17.210 Nicotine 3:20p Office Slick Slaughter M.D., dependence, FACC cigarettes, uncomplicated I47.2 Ventricular tachycardia E11.65 Type 2 diabetes mellitus with hyperglycemia E66.9 Obesity, unspecified E78.2 Mixed hyperlipidemia Office Visit 04/30/2017 3:15p Endocrinology Parvin Pompa, E11.65 Type 2 diabetes M.D. mellitus with hyperglycemia E66.9 Obesity, unspecified E78.2 Mixed hyperlipidemia I10 Essential (primary) hypertension F43.23 Adjustment disorder with mixed anxiety and depressed mood Z79.4 retirement (current) use of insulin Office Visit 03/18/2017 3:00p Endocrinology Parvin Pompa, E11.65 Type 2 diabetes M.D. mellitus with hyperglycemia E66.9 Obesity, unspecified Office Visit 03/12/2017 1:15p Endocrinology Parvin Pompa, E66.9 Obesity, M.D. unspecified E78.2 Mixed hyperlipidemia I10 Essential (primary) hypertension E11.65 Type 2 diabetes mellitus with hyperglycemia F43.23 Adjustment disorder with mixed anxiety and depressed mood Office Visit 01/23/2017 8:45a Surgical Office Gill Jaquez72.3 Sebaceous cyst Cr Malik M.D. Office Visit 01/11/2017 8:30a Cardiology Kalyn Hendrix R06.02 Shortness of Office B., PA breath I10 Essential (primary) hypertension F17.210 Nicotine dependence, cigarettes, uncomplicated E78.5 Hyperlipidemia, unspecified I47.2 Ventricular tachycardia Office Visit 12/27/2016 Surgical Office Gisele N76.4 Abscess of vulva 3:00p Cr Malik M.D. Office Visit 11/20/2016 Cardiology Kalyn Hendrix I47.2 Ventricular 10:10a Office BLinh, PA tachycardia R07.9 Chest pain, unspecified R06.02 Shortness of breath E78.5 Hyperlipidemia, unspecified F17.210 Nicotine dependence, cigarettes, uncomplicated I10 Essential (primary) hypertension Office Visit 08/02/2015 10:30a Surgical Office Guillermo, L72.0 Epidermal cyst JOSE Hdz Office Visit 05/04/2011 2:00p Cardiology Office Beatriz 427.1 Paroxysmal Slick Slaughter M.D., Ventricular FACC Tachycardia 401.1 Hypertension Benign 250.02 Diabetes Mellitus W/O Compl Type II Or Unspec Type Uncontrol Office Visit 10/18/2010 11:20a Cardiology Gloria Ridley 427.1 Paroxysmal Office KEIKO Alarcon, Ventricular BACK SIZER Tachycardia 401.1 Hypertension Benign 250.02 Diabetes Mellitus W/O Compl Type II Or Unspec Type Uncontrol 305.1 Tobacco Use Disorder 272.0 Hypercholesterolemia Pure Office Visit 2010 11:00a Cardiology Slick Henderson 427.1 Paroxysmal Office Eden Slaughter, FACC Ventricular Tachycardia 401.1 Hypertension Benign 250.02 Diabetes Mellitus W/O Compl Type II Or Unspec Type Uncontrol 305.1 Tobacco Use Disorder 782.1 Rash & Other Nonspec Skin Eruption Office Visit 08/21/2010 2:00p Cardiology Slick Henderson 427.1 Paroxysmal Office Eden Slaughter, FACC Ventricular Tachycardia 401.1 Hypertension Benign 250.02 Diabetes Mellitus W/O Compl Type II Or Unspec Type Uncontrol 305.1 Tobacco Use Disorder 782.1 Rash & Other Nonspec Skin Eruption Plan of Treatment Future Appointment(s):04/06/2019 1:45 pm - Adolfo Ceron MD at [facility]/24 /2019 4:05 pm - Greyson Matthews DPM at Pod[id number]/19/2018 8:45 am - Marvin Monte MD at [facility]/02/2017 - Cr Jaquez M.D.L72.3 Sebaceous cystComments:Site healing well. Expected induration given the process that was addressed as well as where this is on her body. Continue using Silvadene on gauze. Follow up here as needed. Questions addressed and reassurance offered.
--- NOTE | 2018-09-06 09:24 | UC ---
Respiratory Complaint HPI - HPI Summary HPI Summary: 57 yo female with cough and congestion x 2 mos now with thick yellow phelgn and wheezing hxCOPD hx pneumonia unable to tolerate augmenting (GI) can take amox no f/c no cp or sob - History of Current Complaint Chief Complaint: UCRespiratory Stated Complaint: COUGH Time Seen by Provider: 09/06/18 09:19 Hx Obtained From: Patient Onset/Duration: Gradual Onset, Lasting Weeks Timing: Constant Severity Initially: Mild Severity Currently: Moderate Pain Intensity: 3 Pain Scale Used: 0-10 Numeric Character: Cough: Productive Aggravating Factors: Nothing Alleviating Factors: Nothing Associated Signs And Symptoms: Positive: Wheezing. Negative: Nasal Congestion, Hoarseness, Sinus Discomfort - Allergies/Home Medications Allergies/Adverse Reactions: Allergies Allergy/AdvReac Type Severity Reaction Status Date / Time amoxicillin [From Augmentin] Allergy Diarrhea Verified 09/06/18 09:00 clavulanic acid Allergy Diarrhea Verified 09/06/18 09:00 [From Augmentin] Home Medications: Home Medications Dm/PE/Acetaminophen/Chlorphenr [[place] Plus Cld-Cough Cp] 2 cap PO ONCE PRN 09/06/18 [History Confirmed 09/06/18] Insulin Degludec [Tresiba Flextouch U-100] 40 unit SUBCUT QPM 09/06/18 [History Confirmed 09/06/18] PMH/Surg Hx/FS Hx/Imm Hx Previously Healthy: Yes Cardiovascular History: Hypertension Respiratory History: COPD, Bronchitis, Pneumonia - Surgical History Surgical History: Yes Surgery Procedure, Year, and Place: removal of cyst in groin - Family History Known Family History: Positive: Cardiac Disease - Social History Alcohol Use: None Substance Use Type: None Smoking Status (MU): Heavy Every Day Tobacco Smoker Type: Cigarettes Amount Used/How Often: 1 PPD Length of Time of Smoking/Using Tobacco: 35 Years Have You Smoked in the Last Year: Yes Household Exposure Type: Cigarettes - Immunization History Most Recent Influenza Vaccination: 05/11/14 Vaccination Up to Date: No Review of Systems All Other Systems Reviewed And Are Negative: Yes Constitutional: Positive: Negative Skin: Positive: Negative Eyes: Positive: Negative ENT: Positive: Sinus Congestion Respiratory: Positive: Cough Cardiovascular: Positive: Negative Gastrointestinal: Positive: Negative Genitourinary: Positive: Negative Motor: Positive: Negative Neurovascular: Positive: Negative Musculoskeletal: Positive: Negative Neurological: Positive: Negative Psychological: Positive: Negative Physical Exam Triage Information Reviewed: Yes Appearance: Well-Appearing, No Pain Distress, Well-Nourished Vital Signs: Initial Vital Signs Temp 97.6 F 09/06/18 08:56 Pulse 96 09/06/18 08:56 Resp 18 09/06/18 08:56 BP 160/81 09/06/18 08:56 Pulse Ox 99 09/06/18 08:56 Vital Signs Reviewed: Yes Eyes: Positive: Conjunctiva Clear ENT: Positive: Hearing grossly normal, Nasal congestion, TMs normal, Uvula midline. Negative: Nasal drainage, Tonsillar swelling, Tonsillar exudate, Trismus, Muffled voice, Hoarse voice, Dental tenderness Neck: Positive: Supple, Nontender, No Lymphadenopathy Respiratory: Positive: Wheezing Cardiovascular: Positive: RRR, No Murmur Musculoskeletal: Positive: ROM Intact, No Edema Neurological: Positive: Alert Psychological Exam: Normal Skin Exam: Normal Respiratory Course/Dx - Differential Dx/Diagnosis Provider Diagnosis: Chronic obstructive pulmonary disease with (acute) exacerbation Discharge - Sign-Out/Discharge Documenting (check all that apply): Patient Departure All imaging exams completed and their final reports reviewed: Yes - Discharge Plan Condition: Stable Disposition: HOME Prescriptions: Amoxicillin PO (*) [Amoxicillin 875 MG (*)] 875 mg PO BID #14 tab Patient Education Materials: Acute Bronchitis (ED), How to Use a Metered-Dose Inhaler and a Spacer (ED) Referrals: Eligio Jay MD [Primary Care Provider] - 5 Days (if not better) - Billing Disposition and Condition Condition: STABLE Disposition: Home
[2018-09-06] MEDS ORDERED: Albuterol HFA INHALER* 8 gm MDI INH ONE (09:26)
== END 2018-09-06 10:14 | disposition home or self-care (01) ==
LOC: UCCORT 08:50
DX: J44.1 Chronic obstructive pulmonary disease with (acute) exacerbation (principal); I10 Essential (primary) hypertension; F17.210 Nicotine dependence, cigarettes, uncomplicated; Z88.0 Allergy status to penicillin
CPT/HCPCS: 71046; 99213; A9270-GY; G0463